=== PATIENT | male | born 1995 | race Caucasian/White ===

== ENCOUNTER 2019-01-13 11:07 | Emergency (ER) | payer OTHER ==
[2019-01-13 11:35] VITALS: BP 119/72
--- NOTE | 2019-01-13 11:54 | UC ---
Ear Complaint HPI - History of Current Complaint Chief Complaint: UCLaceration Stated Complaint: EAR INJURY Pain Intensity: 6 - Allergies/Home Medications Allergies/Adverse Reactions: Allergies Allergy/AdvReac Type Severity Reaction Status Date / Time No Known Allergies Allergy Verified 01/13/19 11:29 Home Medications: Home Medications Ibuprofen TAB* [Motrin TAB* 400 MG] 400 mg PO Q6H PRN 01/13/19 [History Confirmed 01/13/19] PMH/Surg Hx/FS Hx/Imm Hx - Surgical History Surgical History: None - Social History Alcohol Use: None Substance Use Type: None Smoking Status (MU): Never Smoked Tobacco Physical Exam Vital Signs: Initial Vital Signs Temp 98.4 F 01/13/19 11:30 Pulse 76 01/13/19 11:30 Resp 14 01/13/19 11:30 BP 119/72 01/13/19 11:30 Pulse Ox 100 01/13/19 11:30 Discharge ED - Discharge Plan Referrals: No Primary Care Phys,NOPCP [Primary Care Provider] -
== END 2019-01-13 12:45 | disposition home or self-care (01) ==
LOC: UCEAST 11:07
DX: S09.91XA Unspecified injury of ear, initial encounter (principal); X58.XXXA Exposure to other specified factors, initial encounter; Y92.9 Unspecified place or not applicable
CPT/HCPCS: 99202; G0463